=== PATIENT | female | born 1960 | race Caucasian/White ===

== ENCOUNTER 2016-09-16 07:47 | Day surgery (SDC) | payer OTHER ==
[~2016-09-16] VITALS: Ht 167.6 cm; Wt 59.9 kg
[~2016-09-16 07:47] MED LIST: 0.9% Sodium Chloride 1,000 ML IV SCH; ALPR0.5T8 PO; ASPI-973 PO; CHOL200047 PO; LISI-571 PO; METF500T4 PO; NEFA150T PO; OMEP20CA11 PO; OMEP20TA24 PO; PRAV20TA2 PO; Sodium Chloride LOK Flush 10 mL Syringe IV PRN; fentaNYL-PF 50 mCg/mL 2 mL Inj IVPUSH PRN
[2016-09-16 08:08] VITALS: BP 137/71; PULSE 81; RESP 17; O2SAT 96
[2016-09-16 10:04] VITALS: BP 167/75; PULSE 74; RESP 14; O2SAT 97
[2016-09-16 10:21] VITALS: BP 147/72; PULSE 62; RESP 12; O2SAT 97
[2016-09-16 10:25] VITALS: BP 144/67; PULSE 68; RESP 14; O2SAT 97
--- NOTE | 2016-09-16 20:09 | ENDO ---
[address] [address] ENDOSCOPY PROCEDURE PATIENT: KENJI SERRA : 1960 MR#: [id number] ADMIT: 09/16/2016 JOB ID: [id number] CORRECTED REPORT: DATE: 09/16/2016 PRIMARY PROVIDER: OCTAVIO Ni PROCEDURE: 1. Esophagogastroduodenoscopy with biopsies. 2. Colonoscopy with hot snare polypectomy. INDICATIONS: A 55-year-old female with unexplained weight loss and a tendency towards loose bowel movements. She has multifocal abdominal pain as well. The patient additionally was recently found to have fecal occult blood positivity. EGD and colonoscopy are pursued. EQUIPMENT: GIF H 190 and a PCF H 180 AL. SEDATION: 10 mg Versed and 200 mcg fentanyl. COMPLICATIONS: None identified. BOWEL PREPARATION: Fair at best. There was a moderate amount of retained brown liquid stool and fibrous debris requiring copious amounts of irrigation and suction. PROCEDURE INFORMATION: After the risks and benefits were explained, written and verbal informed consent was obtained. The patient was brought into the endoscopy suite and placed into the left lateral decubitus position. Sedation was achieved as above. The scope was introduced into the mouth through the bite block, and advanced under direct visualization to the second portion of the duodenum. The scope was slowly withdrawn to carefully examine the mucosa for any defects or lesions. Retroflexed views were accomplished in the stomach, the stomach was decompressed and the scope removed from the patient who tolerated the procedure well. The patient was then turned around. A digital rectal examination accomplished. Mild internal hemorrhoids were noted. No other pathology. The scope was introduced into the rectum and advanced under direct visualization to the cecum as identified by the appendiceal orifice and ileocecal valve. The terminal ileum was briefly accessed. The scope was then slowly withdrawn to carefully examine the mucosa for any defects or lesions. Retroflexed views were accomplished in the rectum. The colon was decompressed. The scope removed from the patient who tolerated the procedure well. FINDINGS: 1. Duodenum: No pathology identified from the bulb through to the second portion. Random biopsies were taken from D2 for exclusion of sprue. 2. Stomach: The patient had a moderate cobblestoned-appearing gastropathy all throughout. Random gastric biopsies were taken for exclusion of Helicobacter or any other underlying histopathology. I, however, did not see any mass lesions. No ulcers. No outlet obstruction. Retroflexed views of the LES were unremarkable. 3. Esophagus: The squamocolumnar junction correlated with the top of the gastric folds. The GEJ was at about 41 cm from the incisors. No acute erosive changes. No strictures. No mass lesions. 4. Terminal ileum: This appeared visually normal throughout. No signs of inflammation. 5. Colon: The patient had a large diverticulum in the ascending colon. There were seven medium and large polyps removed from the ascending colon between hepatic flexure and ileocecal valve. The largest of these was perhaps somewhere in the 18 x 10 mm range. All of these were sessile. We used a combination of regular and jumbo polypectomy snare. No other significant pathology was appreciated throughout including retroflexed views from within the rectum. ENDOSCOPIC DIAGNOSES: 1. Moderate gastropathy. 2. Otherwise visually unremarkable upper endoscopy. 3. Multiple colon polyps. 4. Mild hemorrhoids. 5. Diverticulosis. RECOMMENDATIONS: 1. Await histopathology. 2. If Helicobacter is found, it will need to be eradicated with standard triple therapy. 3. Based on the slightly suboptimal bowel prep and multiple colon polyps identified today, I would recommend the patient return for full colonoscopy in 12 months. I would recommend an extra day of clear liquids and MiraLAX prior to the official bowel prep. 4. We still have not made a clear-cut explanation for the patient's weight loss. Ultrasound abdomen is ordered. If this is negative, we will again request authorization for CT scan. ADDITIONAL INFORMATION: A small nodule was biopsied in the stomach and this was not included in my original dictation report. At the time of this dictation, I have seen the pathology report and, interestingly, this came back as a benign squamous epithelium negative for atypia. This would be quite unusual from the stomach but has been described in a couple of case reports. Depending on the workup for the patient's weight loss with ultrasound and likely CT, we will probably be planning a repeat upper endoscopy in the near future to review the stomach in more detail and pursue any further biopsies as squamous papilloma in the stomach is so exceedingly rare that it is simply unknown what a lesion like this can do over time. Addenda added by DIMAS 09/19/16 at 7:31am
--- NOTE | 2016-09-18 11:06 | PATH ---
SURGICAL PATHOLOGY Attending Physician:Sabine George CASE STATUS: Signed Out PATIENT NAME: KENJI SERRA PID: [id number] : 1960 DATE COLLECTED:09/16/2016 17:29 SPECIMEN: 1: Duodenum, Biopsy 2: Gastric, Biopsy 3: Gastric, Biopsy 4: Colon, Biopsy CLINICAL HISTORY: 1: DUODENAL BIOPSY 2: GASTRIC BIOPSY 3: GASTRIC 4: COLON POLYP FINAL DIAGNOSIS: 1. Duodenal Biopsy: Changes consistent with chronic duodenitis with focal areas of foveolar metaplasia. Negative for dysplasia and malignancy. Negative for evidence of celiac disease. 2. Gastric Biopsy: Small fragment of fundic mucosa without significant inflammation. Negative for evidence of Helicobacter. Negative for intestinal metaplasia. Negative for dysplasia and malignancy. 3. Specimen Designated Gastric Nodule Biopsy: Fragments of benign squamous epithelium, negative for atypia. 4. Colon Polyp: Tubular adenoma involving multiple biopsy fragments. ICD10 D12.6 NOTE: The results of this evaluation were discussed by telephone with Dr. Roshan Shepard at 7:40 on 09/18/2016. GROSS DESCRIPTION: The specimen is received in four formalin filled containers labeled with the patient's name. 1). The specimen is labeled "duodenal" and consists of 2 portions of tissue which aggregate to 0.3 x 0.3 x 0.2 CM. The specimen is entirely submitted in cassette 1A. 2). The specimen is labeled "gastric" and consists of a 0.3 x 0.2 x 0.2 CM portion of tissue which is entirely submitted in cassette 2A. 3). The specimen is labeled "#3 gastric nodule" and consists of 2 portions of tissue which aggregate to 0.3 x 0.3 x 0.3 CM. The specimen is entirely submitted in cassette 3A. 4). The specimen is sublabeled "colon polyps" and consists of multiple portions of tissue which aggregate to 0.7-0.7 x 0.5 CM. The specimen is entirely submitted in cassette 4A. 09/16/2016 [facility] ICD-9 CODES: CPT CODES: 1: 47752 2: 61269 3: 54244 4: 49027 Electronically Signed Out Roshan Patricia MD [facility] [address] [place] [id number] Technical component performed at [facility], [address], [place], [address]
== END 2016-09-16 23:59 | disposition home or self-care (01) ==
LOC: END 07:47
PROVIDERS: ATTEND Internal Medicine Gastroenterology
DX: R19.4 Change in bowel habit (principal); D12.2 Benign neoplasm of ascending colon; K57.30 Diverticulosis of large intestine without perforation or abscess without bleeding; K64.9 Unspecified hemorrhoids; K29.80 Duodenitis without bleeding; R19.5 Other fecal abnormalities; R63.4 Abnormal weight loss; R10.9 Unspecified abdominal pain; E11.9 Type 2 diabetes mellitus without complications; F17.200 Nicotine dependence, unspecified, uncomplicated; Z79.82 Long term (current) use of aspirin
CPT/HCPCS: 43239; 45385; 88305; 99153; G0500; J2250; J7030